=== PATIENT | male | born 1975 | race Two or more races ===

== ENCOUNTER 2020-02-20 12:05 | Emergency (ER) | payer OTHER ==
[2020-02-20 12:11] VITALS: BP 125/79
== END 2020-02-20 14:33 | disposition left against medical advice (07) ==
LOC: ED 12:05
DX: Z53.21 Procedure and treatment not carried out due to patient leaving prior to being seen by health care provider (principal)

== ENCOUNTER 2020-02-20 20:00 | Emergency (ER) | payer OTHER ==
[2020-02-20 23:07] LABS: BASOPHILS % (AUTO) 0.6 %; EOSINOPHILS # (AUTO) 0.1 10^3/uL (0.0-0.7); EOSINOPHILS % (AUTO) 0.9 %; HGB - HEMOGLOBIN 13.5 g/dL (14.0-18.0); LYMPHOCYTES # (AUTO) 1.8 10^3/uL (1.5-3.5); LYMPHOCYTES % (AUTO) 26.4 %; MEAN CORPUSCULAR HEMOGLOBIN 31.3 pg (27.0-31.0); MEAN CORPUSCULAR HGB CONC 34.1 g/dL (32.0-36.0); MEAN CORPUSCULAR VOLUME 91.7 fL (80.0-94.0); MEAN PLATELET VOLUME 11.2 fL (7.4-11.4); MONOCYTES # (AUTO) 0.7 10^3/uL (0.0-1.0); MONOCYTES % (AUTO) 9.9 %; NEUTROPHILS # (AUTO) 4.1 10^3/uL (1.5-6.6); NEUTROPHILS % (AUTO) 61.8 %; PLT - PLATELET COUNT 303 10^3/uL (130-450); RED BLOOD COUNT 4.32 10^6/uL (4.70-6.10); RED CELL DISTRIBUTION WIDTH 13.6 % (12.0-15.0); WHITE BLOOD COUNT 6.7 x10^3/uL (4.8-10.8)
--- NOTE | 2020-02-21 00:12 | ED Physician Documentation ---
History of Present Illness - Stated complaint Stated Complaint: MALE - Chief complaint Chief Complaint: General - History obtained from History obtained from: Patient - Additonal information Additional information: Patient comes emergency department complaining of rectal bleeding for the last 3 days. He states that he does have pain when he has a bowel movement in the anal area but that he also has been noticing bleeding. He states that he has some mild blood leakage onto his underwear, but has not better left to soak through to his pants. Patient has a history of hemorrhoids and thinks that perhaps his hemorrhoids are acting up again. Patient has not noticed any blood mixed in with his stool. No black stools. No abdominal pain. No lightheadedness or shortness of breath. No other complaints at this time. PD PAST MEDICAL HISTORY - Past Medical History Past Medical History: No Cardiovascular: None Respiratory: None Neuro: None Endocrine/Autoimmune: None GI: None : None HEENT: None Psych: None Musculoskeletal: None Derm: None - Past Surgical History Past Surgical History: No - Present Medications Home Medications: Ambulatory Orders Medication Instructions Recorded Confirmed Hydrocortisone Acetate [Anucort-Hc] 25 mg RC BID PRN #20 supp.rect 02/21/20 - Allergies Allergies/Adverse Reactions: Allergies Allergy/AdvReac Type Severity Reaction Status Date / Time No Known Drug Allergies Allergy Verified 02/20/20 20:24 - Social History Does the pt smoke?: No Smoking Status: Never smoker Does the pt drink ETOH?: Yes Does the pt have substance abuse?: No - POLST Patient has POLST: No PD ED PE NORMAL - Vitals Vital signs reviewed: Yes - General General: Alert and oriented X 3, No acute distress - HEENT HEENT: Atraumatic, PERRL, EOMI, Moist mucous membranes - Neck Neck: Supple, no meningeal sign - Cardiac Cardiac: RRR, No murmur, Strong equal pulses - Respiratory Respiratory: No respiratory distress, Clear bilaterally - Abdomen Abdomen: Soft, Non tender, Non distended - Rectal Rectal: Other (Mild bloody residue perianally, without beronica blood on glove after digital rectal exam. Small hemorrhoids noted externally. No active bleeding.) - Derm Derm: Warm and dry - Extremities Extremities: No deformity - Neuro Neuro: Alert and oriented X 3 - Psych Psych: Normal mood, Normal affect Results - Vitals Vitals: Oxygen O2 Source Room air - Labs Labs: Laboratory Tests 02/20/20 22:55 WBC 6.7 RBC 4.32 L Hgb 13.5 L Hct 39.6 L MCV 91.7 MCH 31.3 H MCHC 34.1 RDW 13.6 Plt Count 303 MPV 11.2 Neut # (Auto) 4.1 Lymph # (Auto) 1.8 [place] # (Auto) 0.7 Eos # (Auto) 0.1 Baso # (Auto) 0.0 Absolute Nucleated RBC 0.00 Nucleated RBC % 0.0 PD MEDICAL DECISION MAKING - ED course Complexity details: reviewed results, considered differential, d/w patient ED course: Pt's CBC was normal and no active bleeding was noted on exam. I felt the most likely source of bleeding was the pt's hemorrhoids. I have prescribed Anusol HC, and we have discussed symptomatic management and prevention of hemorrhoid exacerbation. We have also discussed the usual indications for return. Departure - Departure Disposition: 01 Home, Self Care Clinical Impression: Lower GI bleed Hemorrhoids Qualifiers: Hemorrhoid type: unspecified Qualified Code(s): K64.9 - Unspecified hemorrhoids Condition: Stable Instructions: ED Hematochezia Stable Prescriptions: Hydrocortisone Acetate [Anucort-Hc] 25 mg RC BID PRN #20 supp.rect PRN Reason: As Needed Per Provider Orders Discharge Date/Time: 02/21/20 00:15
[2020-02-21 00:15] VITALS: BP 137/84
== END 2020-02-21 00:15 | disposition home or self-care (01) ==
LOC: ED 20:00
DX: K92.2 Gastrointestinal hemorrhage, unspecified (principal); K64.9 Unspecified hemorrhoids
CPT/HCPCS: 36415; 85025; 99281; 99283

== ENCOUNTER 2020-04-08 09:31 | Outpatient (CLI) | payer OTHER ==
--- NOTE | 2020-04-08 10:26 | SLEEP CARE CONSULTATION ---
Information from patient questionnaire entered by Kristen Ruffin. I have reviewed and concur with the information entered by Kristen Ruffin. This document represents the service I personally performed and the decisions made by me, Echo Galdamez ARNP. History of Present Illness Service Date and Time: 04/08/2020930 Reason for Visit: New patient Chief Complaint: reports: Insomnia (can't stay asleep, taking melatonin last couple years, 10 mg nightly to get to sleep), Unrefreshed sleep (not always), Snoring, Excessive daytime sleepiness, Fatigue (varies), Frequent awakenings at night. denies: Observed pauses in breathing (not sure, has woken him up before) Date of Onset: 3-4 years Usual bedtime: 2200 Time it takes to fall asleep: 1 hour Snores at night: Yes (sometimes) Observed to quit breathing while asleep: No Sleeps alone due to snoring: No Number of times waking at night: 3-4 Reasons for waking at night: reports: Bathroom, Other (most of the time for unknown reason). denies: Choking, Snoring, Gasping for air Toss, Turn, or Twitch while sleeping: Yes Recalls having dreams: Yes Usually gets out of bed at: 0600 Feels refreshed in the morning: No Morning headache: No Sleepy or fatigued during the day: Yes Ever fallen asleep while driving: Yes (drowsy driving on a fishing trip a couple times) Takes day naps: Yes (2 a week avg; 20 minutes on avg) Dreams during day naps: No Prior sleep studies: No Additional HPI information: I had the pleasure of seeing KUMAR TSANG today regarding the possibility of him having a sleep disorder. His current complaints are loud snoring, excessive sleepiness, unrefreshed sleep and frequent nightly awakenings. He is using melatonin 10 mg to get sleep but he has trouble staying to sleep. He tosses and turns a lot during the night. His has told him he snores and will make him turn over at times, he thinks he may have had a few times when he gasped during the night but is unsure of pauses in breathing. He states his goes to bed before him and gets up later so may not have had opportunity to notice pauses. He feels like he is waking up frequently but does not know why, he denies snoring, gasping or choking waking him up. He does get sleepy during the day if not busy and takes naps twice a week for 20 minutes. He states 6 years ago he thinks he was borderline hypertensive so he increased his exercise and this resolved without medication. He states his father has had a heart attack in the past. - Parasomnia Symptoms Ever been unable to move upon waking from sleep: Yes (couple times) Walks in sleep: No Talks in sleep: Yes Ever acted out dreams in sleep: No Ever felt weak in the knees when startled or emotional: No Bothered by creepy, crawly, restless sensations in legs: Yes (once in a while) Problems with memory or concentration: Yes Subjective Initial [place] Sleepiness Scale score: 6 Past Medical History Past Medical History: denies: Hypertension (increased exercise and improved; he is not on medications), Claustrophobia, Congestive Heart Failure, Diabetes, Coronary Heart Disease, Arrythmia, Hypothyroidism, Anemia, Anxiety, Impotence, Depression, Mood disorder, GERD (occasional reflux), Attention deficit Social History 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 Patient is and lives in [facility]. Have you smoked in the past 12 months: No Alcohol use: Yes Alcohol amount and frequency: 3-4 once per month, varies Caffeine use: Yes Caffeine amount and frequency: 1 16 ounce coffee/weekdays Family History Family history of sleep disordered breathing: No Allergies and Home Medications Drug allergies reviewed: Yes (NKDA) Home medication list reviewed: Yes (Melatonin, vitamins) Review of Systems Cardiovascular: reports: high blood pressure (6 years ago, reduced with exercise). denies: palpitations, chest pain, irregular heart rate or pulse Respiratory: denies: shortness of breath, chronic cough Gastrointestinal: reports: heartburn (occasional). denies: difficulty swallowing Urinary: reports: frequency. denies: impotence Neurological: reports: headaches (occasional). denies: seizure, head trauma, speech dysfunction, gait or balance problems Psychiatric: denies: Attention Deficit Hyperactivity, anxiety, depression, mood disorder, claustrophobia Ear/Nose/Throat: reports: nasal congestion (intermittent), dry mouth/throat (once in awhile in the morning), wisdom teeth removed. denies: sinus problems, nose bleeds, hoarseness, injury to nose, tonsillectomy Endocrine: reports: sluggishness. denies: thyroid disease Musculoskeletal: denies: joint pain, muscle pain or cramping, mobility problems Immunologic: denies: allergies to food or environment Physical Exam Blood Pressure: 112/70 Cuff size: regular Heart Rate: 79 O2 Saturation: 99 Height: 5 ft 6 in Weight: 158 lb 9.6 oz Body Mass Index: 25.6 BMI Classification: Overweight HEENT: No craniofacial malformation Nostrils: patent to airflow Turbinates: normal Septum: midline Mouth and throat: normal Soft palate: normal Hard palate: arched Uvula: normal Uvula visualization: 25% Mallampati Class III Tongue: enlarged in size with teeth wharton on lateral edges Tonsils: 1+ Chin and jaw: normal size and position Neck: normal w/o lymphadenopathy or thyromegaly Heart: regular rate and rhythm Lungs: clear bilaterally Impression and Plan 1. Suspected Obstructive Sleep Apnea-Hypopnea Syndrome, as suggested by a history of loud and irregular snoring, observed cessation of breath while asleep, frequent awakening during the night, unrefreshed sleep, cognitive impairment, and excessive daytime sleepiness. Narrow oropharynx and obesity are common predisposing factors for obstructive sleep apnea-hypopnea syndrome. I recommend proceeding to polysomnography to confirm the diagnosis and to assess severity. If the patient has significant sleep disordered breathing, a manual CPAP titration study will also be performed to find the optimal treatment pressure. I informed the patient of what the sleep studies involve and after some discussion, obtained agreement to proceed. The pathophysiology of obstructive sleep apnea-hypopnea syndrome was discussed with the patient and health risks of cardiovascular and cerebrovascular disease if not treated. AASM brochure for obstructive sleep apnea-hypopnea syndrome given and reviewed. Risks of drowsy driving discussed in detail and patient advised to avoid long distance driving and to machine puller and laster at the first sign of drowsiness. Patient agreed to plan. * Schedule polysomnography +- manual CPAP titration study. * Avoid long distance driving or driving when feeling sleepy. * Avoid alcohol, sedative and muscle relaxant around bedtime. * Attempt to lose weight. * Review instructions provided by trained office staff on how to prepare for the sleep study. * Return for follow-up after sleep study completed. Visit Type: In Office Time Spent with Patient (minutes): 33 Provider Statement: I spent 100% of the Face to Face Visit with the patient with greater than 50% spent counseling the patient and coordination of care.
[2020-04-08 10:27] VITALS: BP 112/70
== END 2020-04-08 09:32 | disposition home or self-care (01) ==
LOC: SC 09:31
PROVIDERS: ATTEND Nurse Practitioner Family
DX: R06.83 Snoring (principal); G47.10 Hypersomnia, unspecified; G47.8 Other sleep disorders; R06.81 Apnea, not elsewhere classified; E66.3 Overweight; Z68.25 Body mass index [BMI] 25.0-25.9, adult
CPT/HCPCS: 99204; 99212

== ENCOUNTER 2020-04-30 19:30 | Outpatient (CLI) | payer OTHER | END 2020-04-30 19:31 | disposition home or self-care (01) | LOC: SC 19:30 | PROVIDERS: ATTEND Nurse Practitioner Family | DX: R06.83 Snoring (principal); G47.10 Hypersomnia, unspecified; G47.8 Other sleep disorders; R06.81 Apnea, not elsewhere classified; E66.3 Overweight | CPT/HCPCS: 95810 ==

== ENCOUNTER 2020-05-19 08:03 | Outpatient (CLI) | payer OTHER ==
--- NOTE | 2020-05-19 08:45 | SLEEP CARE CONSULTATION ---
Information from patient questionnaire entered by Kristen Ruffin. I have reviewed and concur with the information entered by Kristen Ruffin. This document represents the service I personally performed and the decisions made by , Echo Galdamez ARNP. History of Present Illness Service Date and Time: 05/19/2020 08 Initial [place] Sleepiness Scale score: 6 (in 2019) Current [place] Sleepiness Scale score: 8 Additional HPI information: KUMAR TSANG returns for follow up and results of the recently performed polysomnography. The patient was informed of the following findings: This was a normal sleep study with no significant sleep disordered breathing. His average AHI 0.2 and richard oxygen saturation of 93%. He spent 23.4% of study supine. He had three prolonged awakenings after sleep onset. I explained the pathophysiology behind obstructive sleep apnea. Patient does not have sleep apnea and was advised how weight gain could increase the risk of developing sleep apnea in the future. Patient has light snoring. Snoring can be reduced by weight loss. Weight loss is best achieved with diet consult. Patient instructed to contact PCP for referral. Snoring can also be treated with an oral appliance from a dentist. Advised to check insurance coverage. In addition, an ENT evaluation can be do to see if other treatment is indicated. Patient counseled not drink alcohol less than 4 hours before bedtime as it can increase snoring and apnea. Patient was cautioned about risks of drowsy driving until sleepiness symptoms resolve. Sleep Study - Results Type of Sleep Study: Polysomnography Year and Where: 04/2020 [facility] Polysomnography/Home Sleep Study results: IMPRESSION: The quality of the study is good. The patient had reduced sleep efficiency due to three prolonged awakenings after the sleep onset. The sleep architecture was abnormal for sleep fragmentation and reduced amount of time spent in slow wave sleep (N3).. Respiratory monitoring showed no significant sleep disordered breathing obstructive sleep apnea-hypopnea (AHI = 0.2) associated with frequent arousals, oxyhemoglobin desaturation and no or hypoxia (richard oxygen saturation of 93%). The patient slept almost exclusively in non-supine positions (supine AHI = 0.0; non-supine = 0.28). No audible snore. There was no significant periodic leg movement of sleep. Cardiac rhythm was nor Allergies and Home Medications Drug allergies reviewed: Yes (NKDA) Home medication list reviewed: Yes (no changes) Review of Systems Review of systems same as previous: Yes (no changes) Physical Exam Heart Rate: 70 O2 Saturation: 98 Height: 5 ft 6 in Weight: 160 lb Body Mass Index: 25.8 BMI Classification: Overweight Impression and Plan 1. Insomnia, unspecified. Insomnia is generally caused by an irregular sleep schedule, spending too much time in bed, napping, caffiene, electronics, lack of a relaxing bedtime ritual and clock watching. Other factors can include anxiety/depression, pain, medications, and obstructive sleep apnea. Patient has regular schedule of going to bed about 2200 and getting up about 0600 in the morning. He takes 10 mg melatonin nightly or he is unable to go to sleep and did take his melatonin the night of the study. He is unable to stay asleep and wakes up on average 2-3 times a night with prolong awakenings/not being able to go back to sleep. [facility] How to Sleep Better pamphlet given and reviewed at last appointment and AAS pamphlet on insomnia given today for review. A sleep diary will be completed for the next 2 weeks to assist implementation of recommendations and for further evaluation of sleep concerns. Patient only spent a quarter of his night supine during study and we could repeat the study with him on his back more. I will review with our medical information specialist to see if further testing is warranted. * Keep a sleep diary for next 2 weeks * Consult with medical information specialist for need of further testing, if needed * Attempt to lose weight * Avoid alcohol consumption near bedtime * The patient is cautioned about driving until sleepiness is completely resolved. * Return in 1-2 months for follow up for further evaluation of his sleep disturbance. Visit Type: In Office Time Spent with Patient (minutes): 20 Provider Statement: I spent 100% of the Face to Face Visit with the patient with greater than 50% spent counseling the patient and coordination of care.
== END 2020-05-19 08:04 | disposition home or self-care (01) ==
LOC: SC 08:03
PROVIDERS: ATTEND Nurse Practitioner Family
DX: G47.00 Insomnia, unspecified (principal); E66.3 Overweight; Z68.25 Body mass index [BMI] 25.0-25.9, adult
CPT/HCPCS: 99212; 99213

== ENCOUNTER 2020-07-27 09:22 | Outpatient (CLI) | payer OTHER ==
--- NOTE | 2020-07-27 10:56 | SLEEP CARE CONSULTATION ---
Information from patient questionnaire entered by Anna Peterson. I have reviewed and concur with the information entered by Anna Peterson. This document represents the service I personally performed and the decisions made by me, Bandar Richards MD, [facility]. History of Present Illness Service Date and Time: 07/27/2020921 Reason for follow up: other (2 month; insomnia) Prior sleep studies: Yes Year and Where: 2019 - [facility] Sleep Type of Sleep Study: Polysomnography (negative) HPI additional information: HPI: Mr. Cook was diagnosed to have insomnia. His sleep study showed prolonged awakenings during the night but no sleep disrupting conditions. He complains of waking twice during the night for about 30 minutes each time and always at the same time. His bedtime is at 10 pm. His wakeup time is 5 am on weekdays and 8 9 am on weekends. He gets up with an alarm clock during the week. He takes melatonin 10 mg one hour before bedtime. He naps once a week on the average. He is sleepy during the day but never fallen asleep at work or while driving. Subjective Initial [place] Sleepiness Scale score: 6 (in 2019) Current [place] Sleepiness Scale score: 10 Allergies and Home Medications Drug allergies reviewed: Yes Home medication list reviewed: Yes Review of Systems Review of systems same as previous: Yes Physical Exam Vital signs obtained and entered by: To minimize the risk of COVID-19 exposure, detailed exam was not performed. Height: 5 ft 6 in Weight: 158 lb Body Mass Index: 25.4 BMI Classification: Overweight Impression and Plan IMPRESSION: 1. Insomnia, most likely due to excessive time spent in bed of 10 hours. I explained to him to his weekend sleep-wake schedule reflects his true circadian rhythm. Going to bed at 10 pm and getting up at 8- 9 am means that he is allowing 10+ hours for sleeping. Therefore, it is only appropriate that he lies awake for 1 2 hours during the night. The solution is to maintain a regular wakeup time at no later than 6 am, especially on the weekends. I will have him keep a sleep diary. PLAN: 1. Limit time spent in bed to no more than 8 hours and get up the same time every morning. 2. Keep a sleep diary. He was given 1-month work of the diary. 3. Return for a follow up in one month. Visit Type: In Office Time Spent with Patient (minutes): 15 Provider Statement: I spent 100% of the Face to Face Visit with the patient with greater than 50% spent counseling the patient and coordination of care.
== END 2020-07-27 09:23 | disposition home or self-care (01) ==
LOC: SC 09:22
PROVIDERS: ATTEND Internal Medicine Pulmonary Disease
DX: G47.00 Insomnia, unspecified (principal)
CPT/HCPCS: 99212; 99213

== ENCOUNTER 2020-08-24 12:44 | Outpatient (CLI) | payer OTHER ==
--- NOTE | 2020-08-24 13:23 | SLEEP CARE CONSULTATION ---
Information from patient questionnaire entered by Anna Peterson. I have reviewed and concur with the information entered by Anna Peterson. This document represents the service I personally performed and the decisions made by me, Bandar Richards MD, [facility]. History of Present Illness Service Date and Time: 08/24/2020 1244 Reason for follow up: one month (with sleep diaries) Prior sleep studies: Yes Year and Where: 04/[address] [facility] Sleep Type of Sleep Study: Polysomnography (negative) HPI additional information: HPI: Mr. Cook was diagnosed to have insomnia. His sleep study showed prolonged awakenings during the night but no sleep disrupting conditions. He complains of waking twice during the night for about 30 minutes each time and always at the same time. His bedtime is at 10 pm. His wakeup time is 5 am on weekdays and 8 9 am on weekends. He gets up with an alarm clock during the week. He takes melatonin 10 mg one hour before bedtime. He naps once a week on the average. He is sleepy during the day but never fallen asleep at work or while driving. His [place] Sleepiness Scale score is today is 8. He says that on week days, he is less likely to fall asleep because he is busy. This past month, he was on vacation. He sleep diary showed bedtime of around 2300 0000 and wakeup time 0830 1000. Prior to his vacation, he did try to get up earlier on the weekends around 0730. Subjective Initial [place] Sleepiness Scale score: 6 (in 2019) Current [place] Sleepiness Scale score: 8 Allergies and Home Medications Drug allergies reviewed: Yes Home medication list reviewed: Yes Review of Systems Review of systems same as previous: Yes Physical Exam Vital signs obtained and entered by: To minimize the risk of COVID-19 exposure, detailed exam was not performed. Height: 5 ft 6 in Weight: 158 lb Body Mass Index: 25.4 BMI Classification: Overweight Impression and Plan IMPRESSION: 1. Insomnia, most likely due to excessive time spent in bed and delayed sleep phase syndrome. When not working, the patient has tendency to get up late between 8:30 10 am. Therefore, this makes it difficult to fall asleep and stay asleep when he goes to bed early at 9 pm on week nights. He will try to keep his wake up time consistentno later than 6 am on the weekends. If after achieving that, he still wakes up frequently during the night, he will return for another in-laboratory polysomnography because on his last sleep study, he barely slept supine. He was reassured that he is getting adequate amount of sleep because his [place] Sleepiness Scale score is normal. PLAN: 1. Continue to limit time spent in bed to no more than 8 hours and get up the same time every morning. 2. Return for a follow up on as needed basis especially if he continues to wake up frequently during the night. 3. Consider repeating the in-laboratory polysomnography with the patient sleeping supine part of the night. Visit Type: In Office Time Spent with Patient (minutes): 15 Provider Statement: I spent 100% of the Face to Face Visit with the patient with greater than 50% spent counseling the patient and coordination of care.
== END 2020-08-24 12:45 | disposition home or self-care (01) ==
LOC: SC 12:44
PROVIDERS: ATTEND Internal Medicine Pulmonary Disease
DX: G47.00 Insomnia, unspecified (principal); E66.3 Overweight; Z68.25 Body mass index [BMI] 25.0-25.9, adult
CPT/HCPCS: 99212; 99213